=== PATIENT | female | born 1990 | race Caucasian/White ===

== ENCOUNTER 2017-01-06 17:03 | Emergency (ER) | payer OTHER ==
[2017-01-06 17:36] VITALS: RESP 16; TEMP 96
[2017-01-06] MEDS ORDERED: Sodium Chloride 0.9% 1,000 ML PRIMARY IV ONE (17:42)
[2017-01-06] MEDS ORDERED: ONDANSETRON 4 MG/2 ML VIAL IVP ONE (17:42)
[2017-01-06] MEDS ORDERED: MORPHINE SULFATE 4 MG/1 ML IVP ONE (17:42)
--- NOTE | 2017-01-06 17:48 | PDOC ---
Abdomen/Flank HPI - General Chief Complaint: Abdomen Pain Stated Complaint: N/V/D, ABD PAIN Date Seen by Provider: 01/06/17 Time Seen by Provider: 17:44 Source: POSITIVE: Patient, Spouse Exam Limitations: POSITIVE: No limitations Nurse's Notes Reviewed & Considered: Yes - History of Present Illness Initial Comments: Patient comes in today with chief complaint of abdominal pain. Patient has had abdominal pain that began on Wednesday with vomiting. She developed diarrhea on Wednesday and has had increasing pain, vomiting, diarrhea since. She states she has had tactile fevers, chills, and sweats. She denies any chest pain, no shortness of breath, no cough. She states that just prior to the beginning of her symptoms she had the start of a period but that it was very light and very short. Body Location Affected: REPORTS: Abdomen Timing: REPORTS: Constant Duration: <1 week Severity: Moderate Quality: REPORTS: Cramping Abdominal Pain Onset Location: REPORTS: RLQ, LLQ, Suprapubic Abdominal Pain Radiation: REPORTS: Periumbilical Modifying Factors: improves with: Nothing Associated Symptoms: REPORTS: Chills, Diaphoresis, Fever, Nausea, Vomiting, Diarrhea Similar Symptoms Previously: No Recent Care Received: REPORTS: Denies Any Prior Injuries Related to Current Complaint?: No - Patient Home Medications Home Medications: Home Medications Acetaminophen [Tylenol] 325 mg PO Q6H PRN 11/24/15 Naproxen Sodium [Aleve] 220 mg PO Q12H PRN 11/24/15 - Patient Allergies Allergies/Adverse Reactions: Allergies Allergy/AdvReac Type Severity Reaction Status Date / Time venom-wasp [wasp venom] Allergy Severe Anaphylaxis Verified 01/06/17 19:10 venom-honey bee Allergy Anaphylaxis Verified 01/06/17 19:10 [bee venom (honey bee)] verapamil AdvReac DIZZINESS Verified 01/06/17 19:10 Past Medical History - heen HEENT History: Denies History Cardiovascular History: Denies History Respiratory History: Snoring Gastrointestinal History: Denies History Genitourinary History: Denies History Endocrine History: Other (please comment) Additional Endocrine History: BORDERLINE DIABETES Musculoskeletal History: Back Pain Prosthesis or Implant: No Neurological History: Migraines Blood Disorders: Denies History Psychiatric History: Denies History History of Sexually Transmitted Diseases: No Female Reproductive History: Denies History LMP: WEDNESDAY Obstetrical History: Denies History Cancer History: Denies History In Past Year Been Physically Harmed or Verbally Threatened: No History of MDRO: No History of Other Communicable Diseases: No Tobacco Use: Current Every Day Smoker Alcohol Use: Rarely Substance Use Type: None Previous Surgical History: Yes Type / Date of Surgery: LEEP 09/06/14 Anesthesia Reactions: No Malignant Hyperthermia: No Significant Family History: No pertinent family hx ROS - Limitations ROS Limitations: No Limitations Constitution: REPORTS: Chills, Fever, Diaphoresis Cardiovascular: REPORTS: Denies Cardiac Symptoms Respiratory: REPORTS: Denies Resp Symptoms Neurological: REPORTS: Denies Neuro Symptoms Gastrointestinal: REPORTS: Abdominal Pain, Nausea, Vomitting, Diarrhea Endocrine: REPORTS: Denies Symptoms Musculoskeletal: REPORTS: Denies MS Symptoms Genitourinary: REPORTS: Other (She has increased frequency of urination, decreased volume. She denies hematuria or dysuria.) Eyes: REPORTS: Denies Symptoms ENT: REPORTS: Denies Symptoms Skin: REPORTS: Denies Skin Symptoms Lympathic: REPORTS: Denies Lympathic Symptoms Immunologic: POSITIVE: Denies Symptoms Psychiatric: POSITIVE: Denies Psych Symptoms Abdominal/Flank Pain PE - General Appearance General Appearance: POSITIVE: Alert, Cooperative, No Acute Distress, No Evidence of Trauma - HEENT HEENT: POSITIVE: Head Inspection Nml, Eyes Inspection Nml, Ears Inspection Nml, Nose Inspection Nml, PERRL, EOMI - Neck Neck: POSITIVE: Normal Inspection, No Apparent Injury - Respiratory Respiratory: POSITIVE: No Respiratory Distress, Breath Sounds Normal, Chest Non- Tender - Cardiovascular Cardiovascular: POSITIVE: Regular Rate and Rhythm, Heart Sounds Normal - Chest Chest: POSITIVE: Non Tender - Abdomen Abdomen: Soft: (All Quadrants), Normal Bowel Sounds: (All Quadrants), Tenderness Noted: (RLQ), (LLQ) - Skin Skin: POSITIVE: Intact, Normal For Race, Warm, Dry, No Rash - Extremities Extremity: Non-Tender: (All Extremities), Normal ROM: (All Extremities), Normal Inspection: (All Extremities) - Neurological Neurological: POSITIVE: Affect Apporpriate, Oriented X3, Motor Normal, Sensation Normal - Psychological Psychiatric: POSITIVE: Affect Appropriate, Mood Appropriate Abdomen Progress - Results Reviewed by me Xrays/CTs/US Reviewed by me: Yes Discussed with Radiologist: Yes Lab Results Reviewed: Yes Lab Results:: Laboratory Results 01/06/17 01/06/17 01/06/17 Range/Units 17:06 17:35 17:52 WBC 5.45 (4.8-10.8) 10^3/uL RBC 4.62 (4.20-5.40) 10^6/uL Hgb 14.2 (12.0-16.0) g/dL Hct 42.0 (37.0-47.0) % MCV 90.9 (81-99) FL MCH 30.7 (27-31) PG MCHC 33.8 (33-37) g/dL RDW Std Deviation 41.5 (39-50) fL RDW Coeff of Sanchez 12.7 (11.5-14.5) % Plt Count 179 (140-350) 10*3/uL MPV 12.5 H (7.4-12.2) FL Immature Gran % (Auto) 0.4 (0-5) % Neut % (Auto) 54.6 (50-80) % Lymph % (Auto) 33.4 (10-50) % Mckean % (Auto) 8.8 (5-15) % Eos % (Auto) 2.4 (0-8) % Baso % (Auto) 0.4 (0-1) % Immature Gran # (Auto) 0.02 10*3/UL Neut # (Auto) 2.98 10*3/UL Lymph # (Auto) 1.82 10*3/uL Mckean # (Auto) 0.48 (0.3-0.8) 10*3/UL Eos # (Auto) 0.13 10*3/UL Baso # (Auto) 0.02 10*3/UL WBC Morphology Comment Normal morphology (NORM) Plt Morphology Comment Normal morphology (NORM) RBC Morph Comment Normal morphology (NORM) Sodium 138 (135-145) meq/L Potassium 3.9 (3.8-5.2) meq/L Chloride 103 (98-112) meq/L Carbon Dioxide 27 (23-33) meq/L Anion Gap 8 (5-20) BUN 17 (7-22) mg/dL Creatinine 0.8 (0.50-1.20) mg/dL Estimated GFR > 60 (>60 ml/min/1.73m(2)) BUN/Creatinine Ratio 21.25 H (6-20) Glucose 85 (78-110) mg/dL Calculated Osmolality 286.0 (267-292) mOsm/kg Lactic Acid < 0.5 L (0.70-2.10) MMOL/L Calcium 8.8 (8.7-10.7) mg/dL Magnesium 1.8 (1.6-2.4) mg/dL Total Bilirubin 0.4 (0.3-1.2) mg/dL AST 38 (8-39) IU/L ALT 44 (9-52) IU/L Alkaline Phosphatase 70 (38-126) IU/L C-Reactive Protein 2.2 H (0.0-0.9) mg/dL Total Protein 6.6 (6.1-8.0) g/dL Albumin 3.6 (3.5-4.8) g/dL Globulin 3.0 (2.50-4.10) g/dL Albumin/Globulin Ratio 1.20 L (1.3-2.0) mg/g Serum HCG, Qual Negative Ur Collection Type Void Urine Color Yellow Urine Clarity Clear (CLEAR) Urine pH 6.0 (5.0-8.5) Ur Specific [place] 1.025 (1.005-1.030) Urine Protein Trace (NEG) mg/dl Urine Glucose (UA) Negative (NEG) mg/dL Urine Ketones 15 (NEG) Urine Occult Blood Negative (NEG) Urine Nitrate Negative (NEG) Urine Bilirubin Small (NEG) Urine Urobilinogen 2.0 (0.2) EU/dL Ur Leukocyte Esterase Small (NEG) Urine RBC None (NONE) /hpf Urine WBC 2-5 (NONE) Ur Squamous Epith Cells Many (NONE) Ur Renal Epithelial Cell None (NONE) Urine Crystals None Urine Bacteria Few (NONE) Urine Casts None (NONE) Urine Mucus None (NONE) Urine Trichomonas None (NONE) Urine Yeast None (NONE) Ur Culture Indicated? Culture not set - Patient's Progress Pain Medication Addressed: POSITIVE: Yes School/Work Release Addressed: POSITIVE: Yes Re-examine Time: 19:43 Status: POSITIVE: Improved MDM / ED Course: Patient was examined, IV started, blood drawn and sent to lab for studies radiographic examinations obtained. Patient received morphine, normal saline, and Zofran. Her pain did improve. She had no episodes of vomiting or diarrhea here in the emergency room. Findings: CT scan of her abdomen shows no acute abnormalities. Per my Interpretation there is air in the colon as well as fluid in the small bowel and this appears to be consistent with gastroenteritis. CBC is within normal limits, urinalysis is negative, comprehensive metabolic panel is unremarkable. Assessment: Gastroenteritis with nausea vomiting and diarrhea. Plan: Discharge home, clear liquids for 24 hours, advance diet slowly. Patient receives a note for work and may return to work when no fevers for 48 hours. - Consult Counseled: POSITIVE: Patient, Family, RE: Lab Results, RE: Radiology Results, RE : DX, RE: Need for F/U Patient Care Time - Estimated PCT Patient Care Time (In Minutes): 30 Vital Signs - Recent Vital Signs Vital Signs: Vital Signs (Last 8 hours) Temp Pulse Resp BP Pulse Ox 01/06/17 17:03 96.0 F L 69 16 121/65 93 - VS Reviewed Vital Signs Reviewed: Yes Discharge Clinical Impression: Abdominal pain, Nausea and vomiting Discharge Disposition: Discharged to Home Condition: Stable Patient Instructions Given at Discharge: Acute Nausea and Vomiting (ED), Acute Abdominal Pain (ED)
[2017-01-06 17:54] LABS: BASOPHILS # (AUTO) 0.02 10*3/UL; BASOPHILS % (AUTO) 0.4 % (0-1); EOSINOPHILS # (AUTO) 0.13 10*3/UL; EOSINOPHILS % (AUTO) 2.4 % (0-8); HEMOGLOBIN 14.2 g/dL (12.0-16.0); LYMPHOCYTES # (AUTO) 1.82 10*3/uL; MEAN CORPUSCULAR HEMOGLOBIN 30.7 PG (27-31); MEAN CORPUSCULAR HGB CONC 33.8 g/dL (33-37); MEAN CORPUSCULAR VOLUME 90.9 FL (81-99); MEAN PLATELET VOLUME 12.5 FL (7.4-12.2); MONOCYTES # (AUTO) 0.48 10*3/UL (0.3-0.8); MONOCYTES % (AUTO) 8.8 % (5-15); NEUTROPHILS # (AUTO) 2.98 10*3/UL; NEUTROPHILS % (AUTO) 54.6 % (50-80); PLATELET MORPHOLOGY COMMENT NORMAL MORPHOLOGY (NORM); RBC MORPHOLOGY COMMENT NORMAL MORPHOLOGY (NORM); RED BLOOD COUNT 4.62 10^6/uL (4.20-5.40); WBC MORPHOLOGY COMMENT NORMAL MORPHOLOGY (NORM)
[2017-01-06 18:07] LABS: BLOOD UREA NITROGEN 17 mg/dL (7-22); BUN/CREATININE RATIO 21.25 (6-20); C-REACTIVE PROTEIN 2.2 mg/dL (0.0-0.9); CALCIUM 8.8 mg/dL (8.7-10.7); EST GLOMERULAR FILTRATION > 60 (>60 ml/min/1.73m(2)); MAGNESIUM 1.8 mg/dL (1.6-2.4); SERUM ALBUMIN 3.6 g/dL (3.5-4.8)
[2017-01-06 18:23] LABS: BILIRUBIN,URINE SMALL (NEG); COLOR,URINE YELLOW; GLUCOSE, URINE (UA) NEGATIVE (NEG); NITRATE,URINE NEGATIVE (NEG); OCCULT BLOOD,URINE NEGATIVE (NEG); PROTEIN,URINE TRACE mg/dl (NEG)
[2017-01-06 18:24] LABS: CLARITY,URINE CLEAR (CLEAR)
[2017-01-06 18:25] LABS: BACTERIA,URINE FEW; SQUAMOUS EPITHELIAL CELL,UR MANY; URINE SAMPLE TYPE VOID
--- NOTE | 2017-01-06 19:15 | DI ---
CT ABDOMEN SCAN WITH IV CONTRAST, 01/06/2017 5:42 PM : Clinical History: Abdominal pain with nausea, vomiting, and diarrhea. Previous Exam: 09/05/2014. The patient is massively morbidly obese. This detracts from the overall quality and significantly humphrey its the diagnostic quality of the exam with respect to fine detail structures. Scans are performed fr om the lower lung bases through the liver and kidneys with IV contrast. 95 ml of Isovue 300 was injec alan IV. A small amount of contrast was injected and then terminated because of leakage from the IV si te. The remainder of the contrast was then injected and the scan proceeded without difficulty. The patient has gained weight since the previous exam. The lung bases are clear. The liver is normal. The gallbladder is grossly normal. There is mild splenomegaly. Both adrenal glands and pancreas are normal. Both kidneys are normal in size, shape, position and contour. There is no hydronephrosis or h ydroureter. No renal or ureteral calculi are present. There are no abnormal retrocrural or periaortic nodes. No ascites is present. READIN. Mild splenomegaly. The scans show no gross abnormality. 2. Severe morbid obesity. CT PELVIS SCAN WITH IV CONTRAST, 01/06/2017 5:42 PM: Clinical History: See above. Previous Exam: 09/05/2014. Scans are performed from just superior to the umbilicus to the symphysis pubis with IV contrast. This is the same bolus of contrast used for the CT scans of the abdomen. Scans through the lower abdomen and pelvis show no masses or abnormal fluid collections. There is no adenopathy. The appendix is normal. The small bowel, terminal ileum, and ileocecal valve are normal. The colon is also normal. Assessment for hernias is not possible because of scan artifacts and the fa ct that not all of the anterior abdominal wall is completely visualized due to the large abdominal gi rth. The uterus and both ovaries are normal. READIN. Grossly normal CT scan of the pelvis. 2. Severe morbid obesity.
== END 2017-01-06 19:54 | disposition home or self-care (01) ==
LOC: ER 17:03
DX: K52.9 Noninfective gastroenteritis and colitis, unspecified (principal); R11.2 Nausea with vomiting, unspecified; R10.84 Generalized abdominal pain; Z72.0 Tobacco use
CPT/HCPCS: 36415; 74177; 80053; 81001; 81003; 83605; 83735; 84703; 85025; 86140; 96361; 96374; 96375; 99283; J2270; J2405; J7030

== ENCOUNTER 2017-02-06 17:04 | Emergency (ER) | payer OTHER ==
[2017-02-06] MEDS ORDERED: Lidocaine 1% 10 MG/ML - 20 ML VIAL SUBCUT ONE (17:23)
[2017-02-06 17:46] VITALS: RESP 16; TEMP 97.2
--- NOTE | 2017-02-07 03:03 | PDOC ---
Hand / Wrist Injury HPI - General Chief Complaint: Laceration / Wound Stated Complaint: wound Date Seen by Provider: 02/06/17 Time Seen by Provider: 17:10 Source: POSITIVE: Patient Exam Limitations: POSITIVE: No limitations Nurse's Notes Reviewed & Considered: Yes - History of Present Illness Initial Comments: The patient is a 26-year-old female. Approximately 20 minutes [employer] she was trimming the stem on a [place]on with a kitchen knife and she accidentally lacerated her right second finger over the dorsum of the proximal interphalange joint. Length of laceration is approximately 1-1/2 cm. No paresthesia or sensory or motor symptoms. Have you received a tetanus shot in the past 10 years?: Unknown Body Location Affected: REPORTS: Upper Extremity (R) Timing: REPORTS: Abrupt Duration: 1/2 hour Severity: Mild Location at Time of Onset: REPORTS: Home Context: REPORTS: Laceration Location of Injury: REPORTS: Right, 2nd Finger Quality: REPORTS: "Pain" Modifying Factors: REPORTS: Other (Discomfort exacerbated by direct palpation) Associated Symptoms: DENIES: Arm (R), Arm (L), Tingling Distally, Numbness Distally, Loss of Feeling, Loss of Power, Other Any Prior Injuries Related to Current Complaint?: No - Patient Home Medications Home Medications: Home Medications Acetaminophen [Tylenol] 325 mg PO Q6H PRN 11/24/15 Naproxen Sodium [Aleve] 220 mg PO Q12H PRN 11/24/15 - Patient Allergies Allergies/Adverse Reactions: Allergies Allergy/AdvReac Type Severity Reaction Status Date / Time venom-honey bee Allergy Severe Anaphylaxis Verified 02/06/17 17:20 [bee venom (honey bee)] venom-wasp [wasp venom] Allergy Severe Anaphylaxis Verified 02/06/17 17:20 verapamil AdvReac Severe NEAR Verified 02/06/17 17:20 SYNCOPE Past Medical History - heen HEENT History: Denies History Cardiovascular History: Denies History Respiratory History: Snoring Gastrointestinal History: Denies History Genitourinary History: Denies History Endocrine History: Other (please comment) Additional Endocrine History: BORDERLINE DIABETES Musculoskeletal History: Back Pain Prosthesis or Implant: No Neurological History: Migraines Blood Disorders: Denies History Psychiatric History: Denies History History of Sexually Transmitted Diseases: No LMP: 1 MONTH AGO Cancer History: Denies History In Past Year Been Physically Harmed or Verbally Threatened: No History of MDRO: No History of Other Communicable Diseases: No Tobacco Use: Current Every Day Smoker Alcohol Use: Rarely Substance Use Type: None Previous Surgical History: Yes Type / Date of Surgery: LEEP 09/06/14 Anesthesia Reactions: No Malignant Hyperthermia: No Significant Family History: No pertinent family hx Past Medical History Reviewed: Reviewed - No Changes ROS - Limitations ROS Limitations: No Limitations Constitution: REPORTS: Denies Symptoms Cardiovascular: REPORTS: Denies Cardiac Symptoms Respiratory: REPORTS: Denies Resp Symptoms Neurological: REPORTS: Denies Neuro Symptoms Gastrointestinal: REPORTS: Denies GI Symptoms Endocrine: REPORTS: Denies Symptoms Musculoskeletal: REPORTS: Denies MS Symptoms Genitourinary: REPORTS: Denies Symptoms Eyes: REPORTS: Denies Symptoms ENT: REPORTS: Denies Symptoms Skin: REPORTS: Other (Laceration as above; see diagram) Lympathic: REPORTS: Denies Lympathic Symptoms Immunologic: POSITIVE: Denies Symptoms Psychiatric: POSITIVE: Denies Psych Symptoms Hand / Wrist Injury Exam - General Appearance General Appearance: POSITIVE: Alert, Cooperative, No Acute Distress. NEGATIVE: No Evidence of Trauma (laceration as above; see diagram) - Extremities Upper Extremity: POSITIVE: No Evidence of FB, Normal ROM, Soft Tissue Tenderness , Uninjured Above Wrist, See Diagram. NEGATIVE: Bony Tenderness, Swelling, Ecchymosis, Deformity, Complete Nail Injury, Partial Avulsion, Limited ROM, Limited ROM d/t Pain, Ltd. ROM d/t Funct. Def., Snuff Box Position Tender, Axial Thumb Load Pain Neurovascular / Tendon: POSITIVE: Sensation Normal, Motor Normal, No Vascular Compromise, Tendon Function Normal Skin: POSITIVE: See Diagram (laceration see diagram) - Respiratory / CVS Respiratory / CVS: POSITIVE: Chest Non Tender, No Ecchymosis, Breath Sounds Normal, No Respiratory Distress, Heart Sounds Normal, Regular Rate/Rhythm Peripheral Pulses: Radial (R): 2+, Radial (L): 2+ Images - Hands Hand: 1 - Laceration Procedure - Laceration/Wound Repair Site of Lac/Wound:: Dorsum of the right index finger over proximal interphalange interphalangeal joint Time of Suture Placement:: 17:20 Wound Length (cm): 1.5 Wound's Depth, Shape: Into subcutaneous tissue Distal CMS: Yes Skin Prep: Sterile Field Maintained, Sterile Drapes Applied, Sterile Dressing Applied, Other (Normal saline) Local Anesthesia Used - Indicate Amt Used in Comment: Lidocaine 1%: Yes Irrigated w/ Saline (mL): 10 Wound Explored: No foreign body removed Wound Debrided: Minimal Wound Repaired With: Sutures single layer Suture Size/Type: 5:0 Number of Sutures: 3 Layer Closure?: No Drain Placement: No Sterile Dressing Applied?: Yes Splint Applied?: Yes (aluminum splint maintaining did treated in functional position) Type of Splint Applied: aluminum Hand / Wrist Injury Progress - Patient's Progress Pain Medication Addressed: POSITIVE: Yes (recommended Advil or Tylenol) School/Work Release Addressed: POSITIVE: Yes Re-Examine Time: 17:40 Status: POSITIVE: Improved, Re-Examined - Consult Counseled: POSITIVE: Patient, Family, RE: DX, RE: Need for F/U Patient Care Time - Estimated PCT Patient Care Time (In Minutes): 25 Vital Signs - VS Reviewed Vital Signs Reviewed: Yes Discharge Clinical Impression: Laceration - injury Discharge Disposition: Discharged to Home Condition: Stable Patient Instructions Given at Discharge: Laceration (ED) Additional Instructions: Keep sutures clean. Keep splinted as necessary. Return in 10 days for suture removal, or sooner at first sign of infection, or if condition worsens in any way. Follow Up With: JOAO CHU [Primary Care Provider] - (Instructions as above. Return for suture removal in 10 days. Return anytime at first sign of infection or if condition worsens in any way.)
== END 2017-02-06 18:15 | disposition home or self-care (01) ==
LOC: ER 17:04
DX: S61.210A Laceration without foreign body of right index finger without damage to nail, initial encounter (principal); W26.0XXA Contact with knife, initial encounter
CPT/HCPCS: 12001; 99282; J2001